=== PATIENT | female | born 1970 | race Hispanic/Latino ===

== ENCOUNTER 2017-11-18 08:36 | Outpatient (CLI) | payer BC ==
--- NOTE | 2017-11-18 10:31 | XRay Report ---
RIGHT ELBOW THREE VIEWS: 11/18/17 08:36:00 CLINICAL: Right elbow pain. FINDINGS: Normal bones and joints. Very mild soft tissue swelling at the olecranon. No joint effusion. IMPRESSION: Very mild soft tissue swelling at the triceps tendon insertion and otherwise normal.
== END 2017-11-18 08:37 | disposition home or self-care (01) ==
LOC: SPVIMAG 08:36
PROVIDERS: ATTEND Orthopaedic Surgery Sports Medicine
DX: M25.521 Pain in right elbow (principal); M79.89 Other specified soft tissue disorders